=== PATIENT | male | born 1995 | race Caucasian/White ===

== ENCOUNTER 2018-12-21 20:29 | Emergency (ER) | payer BC ==
[~2018-12-21] VITALS: Ht 165.1 cm; Wt 83.0 kg
[2018-12-21 21:24] VITALS: Ht 165.1 cm; Wt 83.0 kg
[2018-12-21 23:24] VITALS: BP 122/80
== END 2018-12-21 23:24 | disposition home or self-care (01) ==
LOC: ED 20:29
DX: L03.113 Cellulitis of right upper limb (principal)
CPT/HCPCS: 90715